=== PATIENT | female | born 1960 | race Hispanic/Latino ===

== ENCOUNTER 2021-01-13 20:18 | Emergency (ER) | payer SELFPAY ==
[~2021-01-13] VITALS: Ht 157.5 cm; Wt 74.8 kg
[2021-01-13] MEDS ORDERED: ALBUTEROL/IPRATROPIUM 3 ML NEB NEB ONE (22:45)
[2021-01-13] MEDS ORDERED: AZITHROMYCIN250 MG PO (22:50)
[2021-01-13] MEDS ORDERED: VENTOLIN HFA18 GM INH (22:51)
[2021-01-13] MEDS ORDERED: MEDROL4 MG PO (22:53)
[2021-01-13] MEDS ORDERED: ALBUTEROL/IPRATROPIUM 3 ML NEB ONE (22:53)
[2021-01-13] MEDS ORDERED: GUAIFEN-CODEINE10 ML PO (22:54)
== END 2021-01-13 23:15 | disposition home or self-care (01) ==
LOC: FSED 21:20
DX: J20.9 Acute bronchitis, unspecified (principal); R05.9 Cough, unspecified; I10 Essential (primary) hypertension; E11.9 Type 2 diabetes mellitus without complications
CPT/HCPCS: 71046; 99283